=== PATIENT | female | born 1980 | race Caucasian/White ===

== ENCOUNTER 2020-01-11 09:04 | Outpatient (CLI) | payer OTHER, SELFPAY ==
--- NOTE | ~2020-01-11 | CT_ITS ---
EXAMINATION: CT soft tissue neck w con DATE: 01/11/2020 09:48 INDICATION: Left cheek mass. TECHNIQUE: Computed tomography (CT) of the neck was performed with 75 mL Omnipaque-350 intravenous co ntrast. Automated exposure control and iterative reconstruction technique were employed. The dose-jose gth product was 423.42 mGy-cm. COMPARISON: None FINDINGS: There are changes of thyroidectomy. There are no pathologically enlarged lymph nodes. There is no visible plaque in the proximal internal carotid arteries. The spine is unremarkable. There is mild mucosal thickening in the ethmoid sinuses. IMPRESSION: 1. No abnormal mass or lymphadenopathy. Reviewed, dictated and finalized at location A. BOSS
[2020-01-11 09:35] LABS: Blood Urea Nitrogen 13 mg/dL (8-26); Estimated Glomerular Filt Rate > 60
== END 2020-01-11 09:05 | disposition home or self-care (01) ==
LOC: ANHIMG 09:06
PROVIDERS: PCP Internal Medicine; Visit Provider Nurse Practitioner
DX: R22.1 Localized swelling, mass and lump, neck (principal)
CPT/HCPCS: 70491; Q9967

== ENCOUNTER 2020-01-17 15:10 | Outpatient (CLI) | payer OTHER, SELFPAY ==
--- NOTE | ~2020-01-17 | MR_ITS ---
EXAMINATION: MR orbits face neck wo/w con DATE: 01/17/2020 16:38 INDICATION: Unspecified ptosis of unspecified eyelid. TECHNIQUE: Magnetic resonance imaging (MRI) of the orbits was performed without and with 14 mL MultiH ance intravenous contrast. Sequences of the brain included sagittal and axial T1-weighted FSE, axial diffusion-weighted FS EPI, axial T2*-weighted GRE, axial T2-weighted FLAIR Propeller, and axial T2-we ighted Propeller. Postcontrast sequences included axial and coronal T1-weighted FSE. Sequences of the orbits included coronal and axial T2-weighted FS FSE and T1-weighted FSE. Postcontrast sequences inc luded axial and coronal T1-weighted FS FSE. Apparent diffusion coefficient (ADC) maps were created. COMPARISON: Brain MRI 02/02/2008, neck CT 01/11/2020 FINDINGS: There is no intracranial hemorrhage, acute infarction, or abnormal intracranial mass lesion . The ventricles are normal in size. There is mild mucosal thickening in the paranasal sinuses. The m astoid air cells are normal. The optic nerves and extraocular muscles are normal. There is no abnorma l orbital mass. IMPRESSION: 1. Normal orbits. Reviewed, dictated and finalized at location A. LOGY TEACHER IMPRESSION: 1. Normal orbits.
== END 2020-01-17 15:11 | disposition home or self-care (01) ==
PROVIDERS: PCP Internal Medicine; Visit Provider Nurse Practitioner
DX: H02.409 Unspecified ptosis of unspecified eyelid (principal)
CPT/HCPCS: 70543; A9577

== ENCOUNTER → 2020-09-17 15:26 | Outpatient (CLI) | payer OTHER, SELFPAY ==
--- NOTE | ~2020-09-17 | XR_ITS ---
EXAMINATION: XR abdomen/kub 1V DATE: 09/17/2020 16:01 INDICATION: Calcium kidney stone. TECHNIQUE: A supine view of the abdomen on 2 radiographs was obtained. COMPARISON: CT abdomen 05/25/2016 FINDINGS: There are no dilated loops of bowel. There are phleboliths in the pelvis. There is a 2 mm s tone in left kidney lower pole. There is a 2 mm calcification overlying left ureterovesicular junctio n. IMPRESSION: 1. 2 mm calcification overlying left ureterovesicular junction that may be a phlebolith or renal ston e. 2. 2 mm left kidney stone. Reviewed, dictated and finalized at location A. MONIA PRINT OPERATOR IMPRESSION: 1. 2 mm calcification overlying left ureterovesicular junction that may be a ph lebolith or renal stone. 2. 2 mm left kidney stone.
== END ==
PROVIDERS: Visit Provider Urology
DX: N20.0 Calculus of kidney (principal)
CPT/HCPCS: 74018

== ENCOUNTER 2020-10-01 15:43 | Outpatient (CLI) | payer OTHER, SELFPAY ==
--- NOTE | ~2020-10-01 | US_ITS ---
EXAMINATION: US soft tissue head and neck EXAM DATE: 10/01/2020 16:15 INDICATION: R22.1 - Localized swelling, mass and lump, neck left neck swelling/pain . Thyroid cancer. TECHNIQUE: Multiple grayscale and Doppler images of the parotid, submandibular glands were obtained ( by a technologist who performed the scan) and subsequently reviewed. Correlation is made to CT neck . FINDINGS: Parotid and submandibular glands are symmetric and unremarkable, no evidence of duct dilation. No ech ogenic foci causing shadowing, no evidence of sialolithiasis. No lymphadenopathy identified. IMPRESSION: 1. Unremarkable neck soft tissue ultrasound exam. Reviewed, dictated and finalized at location A. CIATE WEB DEVELOPER
== END 2020-10-01 15:44 | disposition home or self-care (01) ==
PROVIDERS: PCP Internal Medicine; Visit Provider Nurse Practitioner
DX: R22.1 Localized swelling, mass and lump, neck (principal)
CPT/HCPCS: 76536

== ENCOUNTER 2022-05-08 08:21 | Outpatient (CLI) | payer OTHER, SELFPAY ==
--- NOTE | ~2022-05-08 | MR_ITS ---
EXAMINATION: MR abdomen wo con INDICATION: Indeterminate liver lesion on outside hospital CT in TECHNIQUE: Coronal SSFSE ARC, WATER:coronal LAVA-FLEX, Coronal 2D FIESTA FatSat, Axial SSFSE BH ARC, Axial 3D DualEcho BH, Axial SSFSE-IR, Axial DWI b=500, Axial 2D FIESTA FatSat COMPARISON: None available CONTRAST: CT, 05/25/2016 FINDINGS: There is a subtle 2.2 x 2.1 cm mildly T1 hypointense, mildly T2 hyperintense lesion in the right hepatic lobe. Although comparison CTs are performed without contrast, this subtle lesion appear s to be stable when compared to prior CT examinations. Complete characterization is limited by the ab sence of intravenous contrast. The spleen, pancreas, gallbladder, and adrenal glands are normal. The kidneys are unremarkable. There are no pathologically enlarged abdominal lymph nodes. There are no di lated loops of bowel. IMPRESSION: 1. Subtle, stable mass of the right hepatic lobe. Although characterization is incomplete without int ravenous contrast, interval stability is consistent with a benign finding and signal characteristics suggest focal nodular hyperplasia. Reviewed, dictated and finalized at location A. IMPRESSION: 1. Subtle, stable mass of the right hepatic lobe. Although characterization is incomplete without intravenous contrast, interval stability is consistent with a benign finding and signal characteristics suggest focal nodular hyperplasia.
== END 2022-05-08 08:22 | disposition home or self-care (01) ==
PROVIDERS: PCP Internal Medicine; Visit Provider Nurse Practitioner
DX: R16.0 Hepatomegaly, not elsewhere classified (principal)
CPT/HCPCS: 74181

== ENCOUNTER → 2022-05-12 13:35 | Outpatient (CLI) | payer OTHER, SELFPAY ==
--- NOTE | ~2022-05-12 | US_ITS ---
US retroperitoneal comp 05/12/2022 14:05 Procedure: Realtime transabdominal ultrasound of the kidneys and bladder. Indication: Right hydronephrosis. Comparison: MRI dated 05/08/2022 Findings: Renal echotexture is normal bilaterally without contour deforming mass or renal calculus. T here is mild right hydronephrosis. The right kidney measures 9.8 cm and left kidney measures 10.8 cm. Bladder within normal limits. Impression: 1: Mild right hydronephrosis. Reviewed, dictated and finalized at location A. Impression: 1: Mild right hydronephrosis.
== END ==
PROVIDERS: PCP Internal Medicine; Visit Provider Nurse Practitioner Family
DX: N13.30 Unspecified hydronephrosis (principal)
CPT/HCPCS: 76770

== ENCOUNTER → 2022-08-06 15:15 | Outpatient (CLI) | payer OTHER, SELFPAY ==
--- NOTE | ~2022-08-06 | US_ITS ---
US retroperitoneal comp 08/06/2022 15:36 Procedure: Realtime transabdominal ultrasound of the kidneys and bladder. Indication: Hydronephrosis. Lithotripsy. Comparison: Ultrasound dated 05/12/2022 Findings: Renal echotexture is normal bilaterally without hydronephrosis, contour deforming mass or r enal calculus. The right kidney measures 10.6 cm and left kidney measures 11.6 cm. Bladder within no rmal limits. Impression: 1: Unremarkable renal ultrasound. No stones, masses or hydronephrosis. Reviewed, dictated and finalized at location A. Impression: 1: Unremarkable renal ultrasound. No stones, masses or hydronephrosis.
== END ==
PROVIDERS: PCP Internal Medicine; Visit Provider Nurse Practitioner Family
DX: N13.30 Unspecified hydronephrosis (principal)
CPT/HCPCS: 76770

== ENCOUNTER → 2022-08-31 15:00 | Outpatient (CLI) | payer OTHER, SELFPAY ==
--- NOTE | ~2022-08-31 | XR_ITS ---
EXAM: XR abdomen/kub 1V DATE: 08/31/2022 15:11 HISTORY: History of kidney stones . COMPARISON: 09/17/2020. FINDINGS: Normal bowel gas pattern. No organomegaly. Pelvic phleboliths. 2 mm left lower pole calcif ication. The previously described 2 mm calcification overlying the left UVJ is stable and likely repr esents a phlebolith. Regional bones and soft tissues normal for age. IMPRESSION: Stable left nephrolithiasis. Reviewed, dictated and finalized at location K.
== END ==
PROVIDERS: PCP Internal Medicine; Visit Provider Nurse Practitioner Family
DX: N20.0 Calculus of kidney (principal)
CPT/HCPCS: 74018

== ENCOUNTER 2022-10-28 08:56 | Emergency (ER) | payer OTHER, SELFPAY ==
[2022-10-28 09:07] VITALS: BP 115/82; PULSE 93; RESP 16; TEMP 37; O2SAT 98
--- NOTE | 2022-10-28 09:07 | ED.URI ---
HPI - URI/Sore Throat General Chief Complaint: Upper Respiratory Infection Stated Complaint: congestion, sore throat, anxious Time Seen by Provider: 10/28/22 09:12 Source: patient and RN notes reviewed Mode of arrival: ambulatory Limitations: no limitations History of Present Illness HPI Narrative: 42-year-old female presents with concern for nasal congestion, sinus pressure and pain on her teeth that started 3 days ago. She reports she took DayQuil this morning and thought it may have caused her to have a panic attack, her heart rate elevated at 0 130 she had tingling in her hand. Reports those symptoms have subsided. She reports she had a similar reaction in the past to our Sudafed. She denies fever, aches, chills, sweats, cough, sore throat. She reports her family had the flu last week. MD elicited complaint: rhinorrhea and nasal congestion Related Data Home Medications Medication Instructions Recorded Confirmed levothyroxine 125 mcg capsule 125 mcg PO DAILY 04/30/22 10/28/22 Allergies Allergy/AdvReac Type Severity Reaction Status Date / Time Gadolinium-Containing Allergy Mild Rash Verified 10/28/22 09:06 Contrast Medi Chicken Meat Allergy Severe Hives / Uncoded 10/28/22 09:06 Red Face turkey Allergy Mild Hives Uncoded 10/28/22 09:06 Review of Systems Review of Systems: CONSTITUTIONAL: Reports malaise. Night chills, sweats, or fever. EYES: Denies visual changes, redness, or discharge. ENT: Reports rhinorrhea, congestion, sinus pain. Denies otalgia and sore throat. CARDIOVASCULAR: Denies chest pain, palpitations, or edema. RESPIRATORY: Denies cough. Denies dyspnea. GASTROINTESTINAL: Denies abdominal pain, nausea, vomiting, diarrhea SKIN: Denies rash or itching. MUSCULOSKELETAL: Denies myalgia. NEUROLOGIC: Denies headache. All systems reviewed & are unremarkable except as noted in HPI and below PMFSH Past Medical History Medical History (Updated 10/28/22 @ 09:34 by Yeni Harrison NP) Anemia Anxiety Bronchitis Headache, migraine History of PCOS Hx of thyroid cancer Kidney stone Liver lesion Low calcium levels Miscarriage Pneumonia Surgical History Surgical History H/O total thyroidectomy History of cryosurgery 2003 History of lithotripsy Lymph node disorder lymph node removal Status post neck dissection [place] teeth removed Family History Family History Mother Family history of osteoporosis Family history of anemia Grandparent Family history of osteoporosis Family history of Alzheimer's disease Diabetes mellitus Father Skin cancer Atrial fibrillation Son Asthma Social History Social History Smoking status: Never smoker Alcohol intake: current Alcohol use details: occasionally Substance use: never Substance use type: does not use Additional occupation/education comments: Teacher Gender identity (if verbalized by the patient): Female Comments At time of signature, agree with nursing past medical, surgical, social and family history. There is no relevant family history pertinent to the presenting complaint Exam Narrative: GENERAL: Well-appearing, well-nourished, and in no acute distress. HEAD: Normocephalic EYES: PERRLA, conjunctivae clear ENT: Nares clear, turbinates edematous and erythematous, clear discharge. Mucous membranes moist. TM pearly leon with sharp light reflex bilaterally; no tragal tenderness. Oropharynx not erythematous without lesions. Tonsils not enlarged and without exudate, no drooling, no hoarseness, no trismus, uvula midline. NECK: Supple. No lymphadenopathy CHEST: Clear to auscultation, breath sounds equal. No wheezing, rhonchi, rales, or stridor. No respiratory distress, speaks in full sentences. HEART: Regular rate and rhythm. No murmur heard. SKIN: Warm, dry, no rash.
== END 2022-10-28 09:40 | disposition home or self-care (01) ==
PROVIDERS: Emergency Provider Nurse Practitioner; PCP Internal Medicine
DX: J06.9 Acute upper respiratory infection, unspecified (principal); E28.2 Polycystic ovarian syndrome; E89.0 Postprocedural hypothyroidism; Z85.850 Personal history of malignant neoplasm of thyroid
CPT/HCPCS: 87804; 99213; G0463

== ENCOUNTER → 2022-12-11 10:14 | Outpatient (CLI) | payer OTHER, SELFPAY ==
--- NOTE | ~2022-12-11 | US_ITS ---
US right upper quadrant INDICATION: Right upper quadrant abdominal pain PROCEDURE: Realtime right upper abdominal ultrasound. COMPARISON: No prior studies for comparison. FINDINGS: The pancreas is normal without focal mass or pancreatic ductal dilation. Liver echotexture is normal without focal mass or intrahepatic biliary dilatation. There is normal directional flow i n the portal vein. The gallbladder is normal without stones, gallbladder wall thickening or pericholecystic fluid. Comm on bile duct measures 5 mm. Positive sonographic Prince's sign, nonspecific. IMPRESSION: 1: Normal limited abdominal ultrasound. Reviewed, dictated and finalized at location A. UTER SYSTEMS ARCHITECT
== END ==
PROVIDERS: PCP Internal Medicine; Visit Provider Clinical Nurse Specialist
DX: R10.11 Right upper quadrant pain (principal)
CPT/HCPCS: 76705

== ENCOUNTER 2022-12-17 09:32 | Outpatient (CLI) | payer OTHER, SELFPAY ==
--- NOTE | ~2022-12-17 | NM_ITS ---
EXAMINATION: NM hepatobiliary wo pharm DATE: 12/17/2022 12:12 INDICATION: Positive Prince sign on prior ultrasound COMPARISON: None. TECHNIQUE: 4.7 mCi Tc-99m mebrofenin (Choletec) was administered intravenously. Scintigraphic images of the abdomen were obtained for one hour. At the 1 hour time point, the patient drank 8 oz Ensure, and imaging was continued for 60 minutes. Gallbladder ejection fraction was calculated by the technol ogist. FINDINGS: There is normal clearance of radiotracer from the blood pool. There is homogeneous tracer u ptake by the liver. Activity progresses to the bowel and gallbladder. The gallbladder ejection fract ion (GBEF) is 38%. Note that with this technique, normal GBEF >= 33%. IMPRESSION: 1. Normal hepatobiliary scan which along with the normal appearance of the gallbladder on the prior ultrasound essentially precludes acute cholecystitis. Reviewed, dictated and finalized at location A. NG MACHINE FEEDER IMPRESSION: 1. Normal hepatobiliary scan which along with the normal appearance of the gal lbladder on the prior ultrasound essentially precludes acute cholecystitis.
== END 2022-12-17 09:33 | disposition home or self-care (01) ==
PROVIDERS: PCP Internal Medicine; Visit Provider Clinical Nurse Specialist
DX: R10.11 Right upper quadrant pain (principal)
CPT/HCPCS: 78226; A9537

== ENCOUNTER 2023-01-18 09:00 | Outpatient (NON) | payer OTHER, SELFPAY | END 2023-01-18 09:01 | disposition home or self-care (01) | LOC: ANHLAB 01-19 10:31 | PROVIDERS: PCP Internal Medicine; Visit Provider Internal Medicine Gastroenterology | DX: R13.10 Dysphagia, unspecified (principal); K29.00 Acute gastritis without bleeding; K20.90 Esophagitis, unspecified without bleeding | CPT/HCPCS: 88305 ==

== ENCOUNTER 2023-01-18 10:57 | Day surgery (SDC) | payer OTHER, SELFPAY ==
[2022-12-16 09:17] VITALS: BMI 26.2
[2023-01-07 06:36] VITALS: BMI 24.7
--- NOTE | 2023-01-18 11:46 | WPDANESEPPF ---
Anes - Initial Pre Proc Eval Procedure: Operation Date: 01/18/23 12:30 Proposed Procedures p Esophagogastroduodenoscopy - Guilherme Archibald MD s Diagnostic Colonoscopy - Guilherme Archibald MD Date/Time: 01/18/23 11:46 Surgeon: Guilherme Archibald MD Pre Op Diagnosis: Dysphagia,Melena,Blood in Stool,Recal Hemorrhage Patient Data Age: 42 Gender: F Height: 1.63 m Weight: 65.5 kg Allergies Allergy/AdvReac Type Severity Reaction Status Date / Time Gadolinium-Containing Allergy Mild Hives Verified 01/18/23 11:47 Contrast Medi Chicken Meat Allergy Severe Hives / Uncoded 01/18/23 11:47 Red Face turkey Allergy Mild Hives Uncoded 01/18/23 11:47 Home Medications Medication Instructions Recorded Confirmed Type levothyroxine 125 mcg capsule 125 mcg PO DAILY 04/30/22 01/07/23 History valacyclovir 1 gram tablet 2,000 mg PO BID PRN Cold Sores 01/07/23 01/07/23 History (Valtrex) Patient hx anesthesia problems: none Family hx anesthesia problems: none Results Review: All pre-operative results and documents have been reviewed as part of the pre-operative evaluation. [facility] Past Medical History Medical History Abdominal pain Anemia Anxiety Breast lump Bronchitis Headache, migraine History of PCOS Hx of thyroid cancer Kidney stone Liver lesion Low calcium levels Miscarriage Neck swelling Pelvic pain Pneumonia Ptosis Screening for endocrine disorder Screening for lipid disorders Surgical History Surgical History H/O total thyroidectomy History of cryosurgery 2003 History of lithotripsy Lymph node disorder lymph node removal Status post neck dissection [place] teeth removed Family History Family History Mother Family history of osteoporosis Family history of anemia Grandparent Family history of osteoporosis Family history of Alzheimer's disease Diabetes mellitus Father Skin cancer Atrial fibrillation Son Asthma Social History Social History Smoking status: Never smoker Alcohol intake: current Alcohol use details: occasionally Substance use: unknown Substance use type: does not use Lack of Transportation: No Lack of Food: Never True Current Housing: I Have Housing Concerned About Future Housing: No Difficulty Paying Gas/Electric Bills: No Difficulty Paying for Meds: No Currently Unemployed: No Education: Bachelor's Degree Difficulty w/ Childcare or Family Care: No Living arrangements: with family Occupation/Education: occupation Additional occupation/education comments: Teacher Gender identity (if verbalized by the patient): Female Spiritual care concerns: No Anes - Eval Final PreProcedure Day of Procedure 01/18/23 11:46 Patient weight: normal Heart: regular rate and rhythm Lungs: clear to auscultation Airway: Mallampati scale class II Neurological: alert and oriented Last oral intake: >/= 8 hours ASA classification: II Emergent: no Anesthetic plan: proceed Anesthesia type and monitoring: general GIVS and standard monitoring Results Review: All pre-operative results and documents have been reviewed as part of the pre-operative evaluation. Informed Consent: The patient's anesthetic plan and its attendant risks and benefits were discussed with the patient/family/POA. Questions were solicited and answers provided to the satisfaction of the patient/family/POA.
[2023-01-18] MEDS: LACTATED RINGERS 1,000 ML 150 ML IV CONT (11:55)
--- NOTE | 2023-01-18 12:09 | PM.HPGS ---
History of Present Illness History of Present Illness Consent: Risks, benefits, and alternatives have been discussed and questions answered. Patient agrees to proceed with procedure. Chief complaint: Dysphagia,Melena,Blood in Stool,Recal Hemorrhage Narrative: Dianna Hayden is a 42 year old female with ruq pain, work up negative, also sporadic difficulty after having first bite for 2 years, never had scopes. Noted intermittent rectal bleeding. Review of Systems Constitutional: Constitutional: Denies headache(s) and Denies weakness Eyes: Eyes: Denies blurry vision ENT: Reports Normal hearing present, Denies headache(s) and Denies neck pain Cardiovascular: Cardiovascular: Denies chest pain and Denies dyspnea Respiratory: Respiratory: Denies dyspnea Gastrointestinal: Gastrointestinal: Reports no additional gastrointestinal complaints Genitourinary: Genitourinary: Denies dysuria Musculoskeletal: Musculoskeletal: Denies neck pain Integumentary/Breasts: Skin/Breast: Denies dry skin Neurologic: Reports Normal hearing present, Denies headache(s) and Denies weakness Psychiatric: Psychiatric: Denies anxiety Endocrine: Endocrine: Denies change in body appearance Hematologic/Lymphatic: Hematologic/Lymphatic: Denies easy bleeding Allergic/Immunologic: Allergic/Immunologic: Denies urticaria PMFSH Past Medical History Medical History Abdominal pain Anemia Anxiety Breast lump Bronchitis Headache, migraine History of PCOS Hx of thyroid cancer Kidney stone Liver lesion Low calcium levels Miscarriage Neck swelling Pelvic pain Pneumonia Ptosis Screening for endocrine disorder Screening for lipid disorders Surgical History Surgical History H/O total thyroidectomy History of cryosurgery 2003 History of lithotripsy Lymph node disorder lymph node removal Status post neck dissection [place] teeth removed Family History Family History Mother Family history of osteoporosis Family history of anemia Grandparent Family history of osteoporosis Family history of Alzheimer's disease Diabetes mellitus Father Skin cancer Atrial fibrillation Son Asthma Social History Social History Smoking status: Never smoker Alcohol intake: current Alcohol use details: occasionally Substance use: unknown Substance use type: does not use Lack of Transportation: No Lack of Food: Never True Current Housing: I Have Housing Concerned About Future Housing: No Difficulty Paying Gas/Electric Bills: No Difficulty Paying for Meds: No Currently Unemployed: No Education: Bachelor's Degree Difficulty w/ Childcare or Family Care: No Living arrangements: with family Occupation/Education: occupation Additional occupation/education comments: Teacher Gender identity (if verbalized by the patient): Female Spiritual care concerns: No Meds Home Medications and Allergies Home Medications Medication Instructions Recorded Confirmed Type levothyroxine 125 mcg capsule 125 mcg PO DAILY 04/30/22 01/18/23 History valacyclovir 1 gram tablet 2,000 mg PO BID PRN Cold Sores 01/07/23 01/18/23 History (Valtrex) Allergies Allergy/AdvReac Type Severity Reaction Status Date / Time Gadolinium-Containing Allergy Mild Hives Verified 01/18/23 11:47 Contrast Medi Chicken Meat Allergy Severe Hives / Uncoded 01/18/23 11:47 Red Face turkey Allergy Mild Hives Uncoded 01/18/23 11:47 Exam Const: General: comfortable and no acute distress HENMT: Face/Nose/Sinus: Normal nares present Eyes: General: appearance normal, both eyes and all related structures Neck: Neck: no JVD Resp: Auscultation: clear to auscultation bilaterally Cardio: Rate: regular rate R
[2023-01-18 12:46] VITALS: BP 93/59; PULSE 92; RESP 16; O2SAT 99
--- NOTE | 2023-01-18 12:52 | WPDANESPN ---
Anes - Prog Note Post-Op Date/Time: 01/18/23 12:52 Cardiovascular status: normal Respiratory status: normal Airway patency: baseline Mental status: baseline Post-Op hydration status: normal Pain Score (VAS): 0 I/O: Intake & Output 01/17/23 01/18/23 01/18/23 23:59 07:59 15:59 Intake Total 600 Balance 600 Patient Feedback: Patient satisfied with anesthetic care.
[2023-01-18 12:56] VITALS: BP 97/66; PULSE 74; RESP 15; O2SAT 100
[2023-01-18 13:06] VITALS: BP 111/85; PULSE 69; RESP 15; O2SAT 100
== END 2023-01-18 13:20 | disposition home or self-care (01) ==
PROVIDERS: PCP Internal Medicine; Visit Provider Internal Medicine Gastroenterology
PROC: 0DJ08ZZ Inspection of Upper Intestinal Tract, Via Natural or Artificial Opening Endoscopic (ICD-10-PCS; CPT 43235; principal; 2023-01-18 12:30)
PROC: 0DJD8ZZ Inspection of Lower Intestinal Tract, Via Natural or Artificial Opening Endoscopic (ICD-10-PCS; CPT 45378; 2023-01-18 12:30)
DX: R10.11 Right upper quadrant pain (principal)
CPT/HCPCS: 45378; 43249; 43239

== ENCOUNTER 2023-01-24 13:03 | Emergency (ER) | payer OTHER, SELFPAY ==
--- NOTE | 2023-01-24 13:09 | ED.URI ---
HPI - URI/Sore Throat General Chief Complaint: Upper Respiratory Infection Stated Complaint: sore throat, headache Source: patient and RN notes reviewed History of Present Illness HPI Narrative: 42-year-old presents to urgent care with complaints of a sore throat since last night. Patient is also reporting any headache. Denies any fevers, chills, congestion ear pain, chest pain, shortness of breath. Patient has not had anything for her symptoms. Some parts of this dictation were generated by voice recognition software and may contain typographical and/or grammatical inaccuracies. Related Data Home Medications Medication Instructions Recorded Confirmed levothyroxine 125 mcg capsule 125 mcg PO DAILY 04/30/22 01/18/23 valacyclovir 1 gram tablet 2,000 mg PO BID PRN Cold Sores 01/07/23 01/18/23 (Valtrex) Allergies Allergy/AdvReac Type Severity Reaction Status Date / Time Gadolinium-Containing Allergy Mild Hives Verified 01/24/23 13:18 Contrast Medi Chicken Meat Allergy Severe Hives / Uncoded 01/24/23 13:18 Red Face turkey Allergy Mild Hives Uncoded 01/24/23 13:18 Review of Systems Review of Systems: CONSTITUTIONAL: Denies fever, chills, or sweats. EYES: Denies visual changes, redness, or discharge. ENT: sore throat CARDIOVASCULAR: Denies chest pain, palpitations, or edema. RESPIRATORY: Denies cough or dyspnea. GASTROINTESTINAL: Denies abdominal pain, nausea, vomiting, or diarrhea. GENITOURINARY: Denies dysuria or hematuria. SKIN: Denies rash or itching. MUSCULOSKELETAL: Denies back pain, joint pain, or myalgia. NEUROLOGIC: Headache PMFSH Past Medical History Medical History Abdominal pain Anemia Anxiety Breast lump Bronchitis Headache, migraine History of PCOS Hx of thyroid cancer Kidney stone Liver lesion Low calcium levels Miscarriage Neck swelling Pelvic pain Pneumonia Ptosis Screening for endocrine disorder Screening for lipid disorders Surgical History Surgical History H/O total thyroidectomy History of cryosurgery 2003 History of lithotripsy Lymph node disorder lymph node removal Status post neck dissection [place] teeth removed Family History Family History Mother Family history of osteoporosis Family history of anemia Grandparent Family history of osteoporosis Family history of Alzheimer's disease Diabetes mellitus Father Skin cancer Atrial fibrillation Son Asthma Social History Social History Smoking status: Never smoker Alcohol intake: current Alcohol use details: occasionally Substance use: unknown Substance use type: does not use Lack of Transportation: No Lack of Food: Never True Current Housing: I Have Housing Concerned About Future Housing: No Difficulty Paying Gas/Electric Bills: No Difficulty Paying for Meds: No Currently Unemployed: No Education: Bachelor's Degree Difficulty w/ Childcare or Family Care: No Living arrangements: with family Occupation/Education: occupation Additional occupation/education comments: Teacher Gender identity (if verbalized by the patient): Female Spiritual care concerns: No Comments At the time of my signature, I reviewed and agree with the nursing past medical, surgical, social, and family history. There is no relevant family history pertinent to the patient complaint. Exam Narrative: GENERAL: This is a well-nourished, well-developed patient, in no apparent distress. HEAD: normocephalic, atraumatic. EYES: PERRL. Sclera clear/white. Vision is grossly intact. EARS: External ears normal, auditory canals clear and without drainage, TMs normal without perforation. Hearing grossly intact. NOSE: External nose normal with no obvious nasal discha
[2023-01-24 13:24] VITALS: BP 123/75; PULSE 97; RESP 18; TEMP 37.2; O2SAT 100
== END 2023-01-24 13:39 | disposition home or self-care (01) ==
PROVIDERS: Emergency Provider Nurse Practitioner Family; PCP Internal Medicine
DX: J02.9 Acute pharyngitis, unspecified (principal); E28.2 Polycystic ovarian syndrome; Z85.850 Personal history of malignant neoplasm of thyroid; E89.0 Postprocedural hypothyroidism
CPT/HCPCS: 87081; 87880; 99213; G0463

== ENCOUNTER 2023-12-13 15:25 | Outpatient (CLI) | payer OTHER, SELFPAY ==
--- NOTE | ~2023-12-13 | US_ITS ---
EXAMINATION: US pelvic complete w TV DATE: 12/13/2023 16:32 INDICATION: R10.2 - Pelvic and perineal pain , evaluate for torsion. TECHNIQUE: Multiple transabdominal and endovaginal sonographic images of the pelvis were obtained. COMPARISON: CT abdomen pelvis 01/22/2016 FINDINGS: Uterus: Retroverted, 7.8 x 5.3 x 5.9 cm. Endometrial complex measures 12 mm. Right Ovary: 1.9 x 2.1 x 2.4 cm. Vascular flow is present. No adnexal mass. Left Ovary: 2.2 x 2.8 x 1.9 cm. Vascular flow is present. No adnexal mass. There is no free fluid in the pelvis. IMPRESSION: Normal pelvic sonogram findings. Reviewed, dictated and finalized at location K. RNAL CONTROLS SPECIALIST
== END 2023-12-13 15:26 | disposition home or self-care (01) ==
LOC: ANHIMG 15:28
PROVIDERS: PCP Internal Medicine; Visit Provider Obstetrics & Gynecology
DX: R10.2 Pelvic and perineal pain (principal)
CPT/HCPCS: 76830; 76856

== ENCOUNTER 2024-02-20 15:43 | Outpatient (CLI) | payer OTHER, SELFPAY ==
--- NOTE | ~2024-02-20 | XR_ITS ---
Supine and upright views of the abdomen Clinical history: Kidney stone COMPARISON: 08/31/2022 Findings: Bowel gas pattern is nonspecific. No evidence for obstruction or free air. Possible punctat e left lower pole renal stone. Osseous structures are intact. Impression: Possible punctate left lower pole renal stone. Reviewed, dictated and finalized at [facility]. Impression: Possible punctate left lower pole renal stone.
== END 2024-02-20 15:44 ==
PROVIDERS: PCP Nurse Practitioner Family; Visit Provider Nurse Practitioner Family
DX: Z87.442 Personal history of urinary calculi (principal)
CPT/HCPCS: 74018

== ENCOUNTER 2024-02-21 14:57 | Emergency (ER) | payer OTHER, SELFPAY ==
[2024-02-21 15:03] VITALS: BP 125/89; PULSE 64; RESP 16; TEMP 36.4; O2SAT 100
--- NOTE | 2024-02-21 15:21 | ED.GENADULT ---
HPI - General Adult General Chief complaint: Dental/Oral Stated complaint: Swollen Mouth Time Seen by Provider: 02/21/24 15:17 Source: patient, RN notes reviewed and old records reviewed Mode of arrival: ambulatory Limitations: no limitations History of Present Illness HPI narrative: 43 year old female who presents to express care with complaints of her lips swelling, itching and lips feeling tight during the night. Patient has been applying hydrocortisone ointment to her lips since yesterday evening when her lips felt real dry and were peeling. Patient reports that she has not eaten any new foods, no new medication, or any new lotion, soaps, laundry products, or any new exposure to any cleaning agents. Patient reports no shortness of breath or any difficulty swallowing. Patient reports that she did have a small fever sore on her lips and she used Abreva to it and she has used this before. MD complaint: lips swollen Onset (ago): hour(s) (early this morning) Location: mouth (lips) Severity scale (1-10): 2 Treatments prior to arrival: other (hydrocortisone ointment) Related Data Home Medications Medication Instructions Recorded Confirmed levothyroxine 100 mcg tablet 100 mcg PO DAILY 02/15/24 02/21/24 (Synthroid) Allergies Allergy/AdvReac Type Severity Reaction Status Date / Time Gadolinium-Containing Allergy Mild Hives Verified 02/21/24 15:12 Contrast Medi Chicken Meat Allergy Severe Hives / Uncoded 02/21/24 15:12 Red Face turkey Allergy Mild Hives Uncoded 02/21/24 15:12 Review of Systems Review of Systems: CONSTITUTIONAL: Denies fever, chills, or sweats EYES: Denies visual changes, redness, or discharge.lips swollen tight feeling and itchy. ENT: Denies rhinorrhea, congestion, sore throat, or otalgia. CARDIOVASCULAR: Denies chest pain, palpitations, or edema. RESPIRATORY: Denies cough or dyspnea. GASTROINTESTINAL: Denies abdominal pain, nausea, vomiting, or diarrhea. GENITOURINARY: Denies dysuria or hematuria. SKIN: Denies rash or itching. MUSCULOSKELETAL: Denies back pain, joint pain, or myalgia. NEUROLOGIC: Denies headache, numbness, or weakness. PSYCHIATRIC: Denies anxiety or depression. All systems reviewed & are unremarkable except as noted in HPI and below PMFSH Past Medical History Medical History Abdominal pain Anemia Anxiety Breast lump Bronchitis Dysphagia Eosinophilic esophagitis Headache, migraine History of PCOS Hx of thyroid cancer Kidney stone Liver lesion Low calcium levels Miscarriage Neck swelling Pelvic pain Pneumonia Ptosis Screening for endocrine disorder Screening for lipid disorders Screening mammogram for breast cancer Surgical History Surgical History H/O total thyroidectomy History of cryosurgery 2003 History of lithotripsy Lymph node disorder lymph node removal Status post neck dissection [place] teeth removed Family History Family History Mother Family history of osteoporosis Family history of anemia Grandparent Family history of osteoporosis Family history of Alzheimer's disease Diabetes mellitus Father Skin cancer Atrial fibrillation Son Asthma Social History Social History Smoking status: Never smoker Alcohol intake: current Alcohol use details: occasionally Substance use: unknown Substance use type: does not use Do You Feel Safe in your Home?: Yes Lack of Transportation: No Lack of Food: Never True Current Housing: I Have Housing Concerned About Future Housing: No Difficulty Paying Gas/Electric Bills: No Difficulty Paying for Meds: No Currently Unemployed: No Education: Bachelor's Degree Difficulty w/ Childcare or Family Care: No Living arrangements: with family Occupation/Educati
== END 2024-02-21 15:45 | disposition home or self-care (01) ==
PROVIDERS: Emergency Provider Registered Nurse; PCP Internal Medicine
DX: K13.0 Diseases of lips (principal); T78.40XA Allergy, unspecified, initial encounter; K20.0 Eosinophilic esophagitis; E28.2 Polycystic ovarian syndrome; E89.0 Postprocedural hypothyroidism; Z85.850 Personal history of malignant neoplasm of thyroid
CPT/HCPCS: 99213; G0463

== ENCOUNTER 2024-07-23 14:12 | Outpatient (CLI) | payer OTHER, SELFPAY ==
--- NOTE | ~2024-07-23 | US_ITS ---
Right upper quadrant ABDOMINAL ULTRASOUND Ordering provider: GEORGIE Vivar History: . R10.11 - Right upper quadrant pain . Comparison: December 11, 2022 FINDINGS: LIVER: Normal size and echotexture. No focal hepatic lesions or perihepatic fluid collections are rafa ntified. Portal vein flow is normal. GALLBLADDER: Unremarkable. No evidence for stones, sludge, gallbladder wall thickening or pericholecy stic fluid collections. A negative sonographic Prince's sign was noted. BILIARY DUCTS: No evidence for intra or extrahepatic biliary dilation. Common bile duct measures 3 mm in diameter which is within normal limits. PANCREAS: Partially demonstrated with no definite abnormal. FREE FLUID: None. IMPRESSION: Unremarkable right upper quadrant ultrasound of the abdomen. Reviewed, dictated and finalized at location A.
== END 2024-07-23 14:13 | disposition home or self-care (01) ==
LOC: GOSHIMG 14:13
PROVIDERS: PCP Internal Medicine; Visit Provider Clinical Nurse Specialist
DX: R10.11 Right upper quadrant pain (principal)
CPT/HCPCS: 76705

== ENCOUNTER 2024-07-26 09:41 | Outpatient (CLI) | payer OTHER, SELFPAY ==
--- NOTE | ~2024-07-26 | CT_ITS ---
EXAMINATION: CT abdomen pelvis w con DATE: 07/26/2024 10:03 INDICATION: Right upper quadrant abdominal pain TECHNIQUE: Computed tomography (CT) of the abdomen and pelvis was performed with 100 mL Omnipaque-350 intravenous contrast. Automated exposure control and iterative reconstruction technique were employe d. The dose-length product was 711.27 mGy-cm. COMPARISON: None FINDINGS: Minimal dependent atelectasis in the bilateral lower lobes. Heart size is normal. No pericardial or p leural effusion. Small sliding-type hiatal hernia. Liver, gallbladder, spleen, pancreas, bilateral ad renal glands and kidneys are normal. Bowels including the appendix are normal. Bladder, retroverted u terus and bilateral adnexa are unremarkable. No free intraperitoneal gas or fluid. No pathologically enlarged abdominal or pelvic lymphadenopathy. Mild thoracolumbar levocurvature. IMPRESSION: 1. No acute intra-abdominal/pelvic process. Reviewed, dictated and finalized at location B.
== END 2024-07-26 09:42 | disposition home or self-care (01) ==
LOC: ANHIMG 09:43
PROVIDERS: PCP Internal Medicine; Visit Provider Clinical Nurse Specialist
DX: R10.11 Right upper quadrant pain (principal)
CPT/HCPCS: 74177; Q9967

== ENCOUNTER 2024-09-25 15:58 | Outpatient (CLI) | payer OTHER, SELFPAY ==
[2024-09-25 16:44] LABS: Alanine Aminotransferase 18 U/L (6-35); Albumin Level 4.1 g/dL (3.5-5.1); Alkaline Phosphatase 77 U/L (38-126); Amylase 49 U/L (30-110); Aspartate Amino Transferase 25 U/L (14-36); Bilirubin,Total 0.3 mg/dL (0.2-1.3); Lipase 53 U/L (23-300)
== END 2024-09-25 15:59 | disposition home or self-care (01) ==
LOC: ANHLAB 15:59
PROVIDERS: PCP Internal Medicine; Visit Provider Surgery
DX: K92.9 Disease of digestive system, unspecified (principal)
CPT/HCPCS: 36415; 80076; 82150; 83690

== ENCOUNTER 2024-10-01 00:17 | Day surgery (SDC) | payer OTHER, SELFPAY ==
[2024-09-25 11:20] VITALS: BMI 28.3
--- NOTE | 2024-09-25 11:25 | PC.NURSE ---
Report to the Outpatient Waiting Room, entrance under the green pavilion located off [facility], at time _0800_ on date _[id number]_. Planned Procedure Time: _1000_.? Time changes happen often and if your time is changed the preop area will call you the afternoon before. - You and your visitor will be asked to self-screen and do not enter if you have any COVID symptoms. Please call surgeon if you need to reschedule. - A mask is optional within the hospital at this time. Patients may have clear liquids (water, carbonated beverages, clear teas, apple juice) until 3 hours prior to surgery with a maximum of 20 ounces. - No food from midnight until time of surgery and no smoking Take only the following medications with a SIP of water on the morning of surgery: ___Levothyroxine and inhaler____ DO NOT STOP ANY OF YOUR OTHER PRESCRIPTION MEDICATIONS PRIOR TO SURGERY EXCEPT THE FOLLOWING Medications to discontinue per physician __None___ Please no make-up, nail turkmen, hairspray, perfume, deodorant, or body powder the day of surgery.? No jewelry (including any body piercings) or valuables the day of surgery, leave them at home.? Please take a shower or bath the night before, or the morning of, surgery with an antibacterial soap.? Wear comfortable, loose fitting clothing.? - Jewelry must be removed prior to entering the operating room.? Rings and piercings that are not removed may be cut off. - The hospital will not accept responsibility for valuables.? - Please leave all valuables, including medications, at home the day of surgery. If you are going home after surgery, a licensed boat driver must drive you home.? - NO public transportation without another adult if you receive anesthesia. - We recommend that an adult stay with you for 24 hours following discharge. - We also recommend that you do not drive, make important decision, drink alcoholic beverages, or take any drugs that were not prescribed by your health care provider for at least 24 hours after your discharge time. Follow any additional instructions given to you from your surgeon. Telephone instructions given to _Mandy__and asked if any additional questions and then verbalized understanding. Patient advised to call surgeon office or pre surgery nurse liaison [phone] if any additional questions.
[2024-10-01] VITALS (13 sets, daily range): BP systolic 100–129; BP diastolic 56–78; PULSE 60–110; RESP 14–20; TEMP 36.6–37.1; O2SAT 92–100
[2024-10-01] MEDS: ACETAMINOPHEN 500 MG TABLET 1000 MG PO (08:45)
[2024-10-01] MEDS: KETOROLAC 15 MG/ML VIAL (*BKC) IV PUSH ×2 (08:57→11:43)
[2024-10-01] MEDS: LACTATED RINGERS 1,000 ML 30 ML IV CONT ×3 (09:00→14:24)
[2024-10-01 10:06] LABS: BEDSIDEPREGUCG Negative (Negative)
--- NOTE | 2024-10-01 10:21 | P.HP_ITS ---
H&P: HPI History of Present Illness Date/Time: 10/01/24 10:21 Chief Complaint: Biliary colic and epigastric abdominal pain associated with eating. Narrative: Ms. Hayden presents to the office today at the request of Kyung Stratton PA-C for evaluation. The patient has a approximately 3-year history of RUQ abdominal tenderness and bloating with recent increase in frequency and intensity over the last couple months. Symptoms seem to be related to eating, but no pattern to any specific foods. Pain typically occurs in the middle of the night and wakes her from sleep. She's had and abdominal ultrasound and CT scan for work-up, which were both unremarkable. She did have a HIDA scan with Ensure in 12/2022 with EF of 28%. She doesn't recall whether Ensure recreated her symptoms of abdominal pain or bloating. She has history of dysphagia and underwent EGD where dilation was performed. Testing for h.pylori was negative. Has EOE and is followed by GI and a personal history papillary thyroid CA with thyroidectomy, neck dissection, and radiation therapy. Review of Systems Review of Systems: The remainder of the review of systems to include constitutional, HEENT, cardiovascular, respiratory, GI, , integumentary, musculoskeletal, endocrine, immunologic, hematologic, psychiatric, and neurologic are all negative except for which is mentioned above in the HPI. [facility] Past Medical History Medical History Abdominal pain Anemia Anxiety Breast lump Bronchitis Dysphagia Eosinophilic esophagitis Headache, migraine History of PCOS Hx of thyroid cancer Kidney stone Liver lesion Low calcium levels Miscarriage Neck swelling Pelvic pain Pneumonia Ptosis Screening for endocrine disorder Screening for lipid disorders Screening mammogram for breast cancer Surgical History Surgical History H/O total thyroidectomy History of cryosurgery 2003 History of lithotripsy Lymph node disorder lymph node removal Status post neck dissection [place] teeth removed Family History Family History Mother Family history of osteoporosis Family history of anemia Grandparent Family history of osteoporosis Family history of Alzheimer's disease Diabetes mellitus Father Skin cancer Atrial fibrillation Son Asthma Social History Social History Smoking status: Never smoker Alcohol intake: current Alcohol use details: occasionally Substance use: unknown Substance use type: does not use Do You Feel Safe in your Home?: Yes Lack of Transportation: No Lack of Food: Never True Current Housing: I Have Housing Concerned About Future Housing: No Difficulty Paying Gas/Electric Bills: No Difficulty Paying for Meds: No Currently Unemployed: No Education: Bachelor's Degree Difficulty w/ Childcare or Family Care: No Living arrangements: with family Occupation/Education: occupation Additional occupation/education comments: Teacher Gender identity (if verbalized by the patient): Female Sexual Orientation (if Verbalized by the Patient): Straight or Heterosexual Spiritual care concerns: No Meds Home Medications and Allergies Home Medications Medication Instructions Recorded Confirmed Type levothyroxine 125 mcg tablet 125 mcg PO DAILY 07/23/24 09/25/24 History fluticasone propionate 220 2 puff inhalation Q12H 8 weeks #12 08/29/24 09/25/24 Rx mcg/actuation HFA aerosol inhaler grams valacyclovir 1 gram tablet 2,000 mg PO BID PRN Cold Sores 09/25/24 09/25/24 History (Valtrex) Allergies Allergy/AdvReac Type Severity Reaction Status Date / Time Gadolinium-Containing Allergy Mild Hives Verified 09/25/24 11:19 Contrast Medi Chicken Meat Allergy Severe Hives / Uncoded 09/25/24 11:19 Red Face turkey Allergy Mild Hives Uncoded 09/25/24 11:19 Vital Signs Vital Signs - 24 hr 10/01/24 08:30 Temperature 37.1 C Pulse Rate 64 Respiratory Rate 20 Blood Pressure 108/56 L Oxygen Delivery Room Air Exam Const: General: comfortable and no acute distress HENMT: Ears: TM's normal bilaterally Face/Nose/Sinus: Normal nares present Mouth: Yes moist mucous membranes Eyes: General: appearance normal, both eyes and all related structures Sclera: sclerae normal Pupils: Equal, round and reactive pupils present EOM: EOMs intact bilaterally Neck: Neck: supple and no JVD Resp: Effort & Inspection: normal respiratory effort Auscultation: clear to auscultation bilaterally Cardio: Rate: regular rate Rhythm: regular rhythm GI: Other: Soft, nondistended. Minimal tenderness RUQ. No masses. Skin: General skin exam: normal color and no rashes or lesions noted Neuro: General: gait normal Speech: normal speech Motor exam (neuro): 5/5 motor strength present throughout and Motor abnormalites present Sensory Exam: normal sensation Extrem: General: normal to inspection Psych: Mental Status: mental status grossly normal Affect: normal affect Assessment and Plan Assessment and plan (1) Right upper quadrant abdominal pain: Code(s): R10.11 - Right upper quadrant pain Status: Acute Assessment and Plan: Prior to the patients visit, I reviewed the office note of Kyung Stratton PA-C as well as the reports and imaging from her recent abdominal ultrasound and CT scan. Patient has a about 3 year hx intermittent RUQ pain. Extensive GI work-up with colonoscopy and EGD has not shown any reason for the pain. Abdominal ultrasound and CT shows no gallstones or gallbladder wall thickening. HIDA scan did show borderline EF of 38%. Patient does not obviously associate symptoms with eating certain foods, but is frequently bloated after eating. I did offer repeat HIDA scan vs proceeding with laparoscopic cholecystectomy based on her symptoms and EF of 38%. She wished to proceed with surgery based upon already performed HIDA scan results. The surgery was discussed in detail with the patient including description, risks, benefits, post-operative restrictions, recovery, and anticipated outcome.? Specific risks to include bleeding and possible need for blood transfusion, infection, bile leak, injury to other organs, common?bile duct injury, and conversion to open cholecystectomy has been discussed.? Surgical description and low fat handout sheets were given and explained.? Questions answered and the patient agrees to proceed as discussed.?
--- NOTE | 2024-10-01 10:26 | WPDHPUPDATE1 ---
History and Physical Update Update Date/Time: 10/01/24 10:26 History and Physical has been reviewed, including an updated exam of the patient. There are NO changes in the patient's condition. Risks, benefits, and alternatives have been discussed and questions answered. Patient agrees to proceed with procedure.
--- NOTE | 2024-10-01 10:42 | WPDANESEPPF ---
Anes - Initial Pre Proc Eval Procedure: Operation Date: 10/01/24 10:00 Proposed Procedures p Laparoscopic Cholecystectomy, Possible Open - Damon Melo MD Date/Time: 10/01/24 10:42 Surgeon: Damon Melo MD Pre Op Diagnosis: RUQ abd pain Patient Data Age: 44 Gender: F Height: 1.63 m Weight: 80.6 kg Last Vital Signs Temp 98.8 F 10/01/24 08:30 Pulse 64 10/01/24 08:30 Resp 20 10/01/24 08:30 BP 108/56 L 10/01/24 08:30 O2 Del Method Room Air 10/01/24 08:30 Allergies Allergy/AdvReac Type Severity Reaction Status Date / Time Gadolinium-Containing Allergy Mild Hives Verified 09/25/24 11:19 Contrast Medi Chicken Meat Allergy Severe Hives / Uncoded 09/25/24 11:19 Red Face turkey Allergy Mild Hives Uncoded 09/25/24 11:19 Home Medications Medication Instructions Recorded Confirmed Type levothyroxine 125 mcg tablet 125 mcg PO DAILY 07/23/24 09/25/24 History fluticasone propionate 220 2 puff inhalation Q12H 8 weeks #12 08/29/24 09/25/24 Rx mcg/actuation HFA aerosol inhaler grams valacyclovir 1 gram tablet 2,000 mg PO BID PRN Cold Sores 09/25/24 09/25/24 History (Valtrex) Laboratory Tests 10/01/24 08:30 POC Urine HCG, Qual Negative (Negative) Patient hx anesthesia problems: none Family hx anesthesia problems: none Results Review: All pre-operative results and documents have been reviewed as part of the pre-operative evaluation. [facility] Past Medical History Medical History Abdominal pain Anemia Anxiety Breast lump Bronchitis Dysphagia Eosinophilic esophagitis Headache, migraine History of PCOS Hx of thyroid cancer Kidney stone Liver lesion Low calcium levels Miscarriage Neck swelling Pelvic pain Pneumonia Ptosis Screening for endocrine disorder Screening for lipid disorders Screening mammogram for breast cancer Surgical History Surgical History H/O total thyroidectomy History of cryosurgery 2003 History of lithotripsy Lymph node disorder lymph node removal Status post neck dissection [place] teeth removed Family History Family History Mother Family history of osteoporosis Family history of anemia Grandparent Family history of osteoporosis Family history of Alzheimer's disease Diabetes mellitus Father Skin cancer Atrial fibrillation Son Asthma Social History Social History Smoking status: Never smoker Alcohol intake: current Alcohol use details: occasionally Substance use: unknown Substance use type: does not use Do You Feel Safe in your Home?: Yes Lack of Transportation: No Lack of Food: Never True Current Housing: I Have Housing Concerned About Future Housing: No Difficulty Paying Gas/Electric Bills: No Difficulty Paying for Meds: No Currently Unemployed: No Education: Bachelor's Degree Difficulty w/ Childcare or Family Care: No Living arrangements: with family Occupation/Education: occupation Additional occupation/education comments: Teacher Gender identity (if verbalized by the patient): Female Sexual Orientation (if Verbalized by the Patient): Straight or Heterosexual Spiritual care concerns: No Anes - Eval Final PreProcedure Day of Procedure 10/01/24 10:42 Patient weight: obese Heart: regular rate and rhythm Lungs: clear to auscultation Airway: Mallampati scale class II Neurological: alert and oriented Last oral intake: >/= 8 hours ASA classification: III Emergent: no Anesthetic plan: proceed Anesthesia type and monitoring: general ETT and standard monitoring Results Review: All pre-operative results and documents have been reviewed as part of the pre-operative evaluation. Informed Consent: The patient's anesthetic plan and its attendant risks and benefits were discussed with the patient/family/POA. Questions were solicited and answers provided to the satisfaction of the patient/family/POA.
[2024-10-01] MEDS: ceFAZolin 2 GM/D5W 50 ML 2 GM/50 ML BAG IVPB (10:51)
[2024-10-01] MEDS: LIDO 1%/EPINEPHRINE 1:100,000 50 ML VIAL 30 ML INFILTRATE (11:19)
[2024-10-01] MEDS: BUPivacaine HCL 0.5% 10 ML AMP 30 ML INFILTRATE (11:19)
--- NOTE | 2024-10-01 12:02 | P.OP_ITS ---
Procedure Note - Detailed Date of Procedure 10/01/24 Pre-op Diagnosis RUQ abd pain Post-op Diagnosis Same Procedure Performed Laparoscopic cholecystectomy. Surgeon Damon Melo MD Anesthesia General Indications Patient is a 44-year-old female who has been experiencing intermittent right upper quadrant abdominal pain. Is been intermittent and is associated with eating but not particularly any fatty foods. She has had abdominal ultrasound performed showed no gallstones. No gallbladder wall thickening. CT scan abdomen pelvis was unremarkable. HIDA scan was then done showing ejection fraction gallbladder around 38%. She did have pain with the provocative portion of the test. She has had upper endoscopy and workup by GI. Clinically she appears to have biliary colic and a HIDA scan provocative portion of the test recreates her symptoms also she presents now for elective laparoscopic cholecystectomy. Findings None significant Description of Procedure After informed consent was obtained patient brought to the operating room she was placed supine position and general endotracheal anesthesia was administered. The abdomen was then prepped and draped in the usual sterile fashion. A time- out was then performed correctly identifying the patient as well as the procedure to be performed. She was given perioperative IV antibiotics. I entered the abdomen left upper quadrant utilizing a 5mm Optiview port. Once inside the abdomen I insufflated to an adequate pneumoperitoneum of 15mmmmmercury of CO2. I then placed a periumbilical 5mm trocar port and then a 10mm epigastric trocar port and 2 more 5mm right subcostal trocar ports all under direct visualization. I then held the gallbladder at the dome with a laparoscopic grasper and then elevated the gallbladder over the right half liver towards right shoulder. There were no adhesions of the duodenum, omentum, or stomach to the gallbladder wall. The gallbladder wall appeared to be normal thickness and without any acute or chronic inflammation. A 2nd grasper used to hold the gallbladder at the infundibulum. I then proceeded to strip down the visceral peritoneum off of the infundibular gallbladder to identify the cystic duct. The cystic duct was dissected out circumferentially. Cystic artery was identified and dissected out circumferentially as well. Posterior wall the gallbladder at the infundibulum was dissected free of the liver into the critical view was obtained. At this point I then placed 2 clips proximally cystic duct and 1 clip distally high on the infundibulum of the gallbladder. The cystic duct was then divided with Endo Jame. The cystic artery was then dissected out circumferentially as well and then clipped and divided in similar fashion. The gallbladder was then resected off the liver bed utilized e lectrocautery. No spillage of bile occurred. The gallbladder was then placed into an Endo-Catch bag and brought out through the epigastric port site. It was passed off table and sent to pathology for examination. I then irrigated out the right upper quadrant the abdomen gallbladder fossa copious amounts of sterile saline solution. No evidence of bile leak or he bleeding was noted. I then aspirated the fluid from the right upper quadrant the abdomen from the pelvis. I then removed all the trocar ports under visualization all port sites appeared hemostatic. The abdomen was then allowed to decompress. I then irrigated out the port sites sterile saline solution in the epigastric 10mm trocar port fascial defect was then closed utilizing 0 Vicryl suture in a figure-eight fashion. The skin edges on all the port sites were then approximated utilizing a running subcuticular 4-0 Monocryl suture. The incisions were then cleaned the skin glue was applied. The patient tolerated the procedure well no complications. All sponges, needles, and instrument counts were correct at the end procedure. EBL was _10 cc. The patient was awakened and taken to recovery in stable and satisfactory condition. Implants None Estimated Blood Loss 10 Drains No Packing No Pathology Yes (Gallbladder to pathology) Complications No immediate complications Condition Stable Disposition PACU [facility] Billing Surgery - Charge Forward: Surgery Billing
[2024-10-01] MEDS: ONDANSETRON INJ 4 MG/2 ML VIAL IV PUSH (13:21)
--- NOTE | 2024-10-01 14:03 | SUR.PHASEII ---
MD Perez contacted - pt still slightly nauseous after ordered Zofran. New orders for RN to give scopalamine patch.
[2024-10-01] MEDS: SCOPOLAMINE 1 MG PATCH 1 PATCH TRANSDERM (14:08)
--- NOTE | 2024-10-01 16:02 | SUR.PHASEII ---
[id number] PATIENT STATES NAUSEA IS MINIMAL NOW AND WOULD LIKE TO GO HOME. STILL SLIGHTLY DROWSY BUT ABLE TO WALK WITHOUT ASSISTANCE IN ROOM AND WITHOUT INCREASED NAUSEA. PATIENT C/O'D INTERMITTENT BRIEF EPISODES OF PALPITATIONS SINCE ARRIVAL TO PACU, < 5; DENIES CHEST PAIN/SOB. DR. MAXWELL NOTIFIED; ALLOWING PATIENT TO GO HOME WITH NO INTERVENTIONS.
== END 2024-10-01 15:40 | disposition home or self-care (01) ==
PROVIDERS: PCP Internal Medicine; Visit Provider Surgery
PROC: 0FT44ZZ Resection of Gallbladder, Percutaneous Endoscopic Approach (ICD-10-PCS; CPT 47562; principal; 2024-10-01 10:00)
DX: K82.4 Cholesterolosis of gallbladder (principal); E89.0 Postprocedural hypothyroidism; E66.9 Obesity, unspecified; Z68.30 Body mass index [BMI] 30.0-30.9, adult
CPT/HCPCS: 47562; 88304; A9270; J0690; J1100; J1171; J1885; J2003; J2004; J2250; J2405; J2704; J3010; J7030; J7120